=== PATIENT | female | born 1995 | race Caucasian/White ===

== ENCOUNTER 2016-12-25 07:50 | Emergency (ER) | payer BC ==
[~2016-12-25 07:50] MED LIST: CLONAZEPAM0.5 MG PO; SOLODYN80 MG PO; ZOFRAN8 MG PO; [UNRECOGNIZED DRUG - OTHER]
[2016-12-25] MEDS ORDERED: REGLAN5 MG PO (07:58)
[2016-12-25] MEDS ORDERED: OMEPRAZOLE10 M1 PO (07:58)
== END 2016-12-25 09:22 | disposition home or self-care (01) ==
LOC: SED 07:50
DX: K31.84 Gastroparesis (principal); Z91.040 Latex allergy status; Z79.899 Other long term (current) drug therapy
CPT/HCPCS: 96365; 99284; J2550

== ENCOUNTER 2017-01-15 05:42 | Emergency (ER) | payer BC ==
[~2017-01-15] VITALS: Ht 160 cm; Wt 59.0 kg
[~2017-01-15 05:42] MED LIST changes: +OMEPRAZOLE10 M1 PO; +REGLAN5 MG PO
== END 2017-01-15 06:19 | disposition home or self-care (01) ==
LOC: SED 05:42
DX: L25.9 Unspecified contact dermatitis, unspecified cause (principal); F41.9 Anxiety disorder, unspecified; F17.210 Nicotine dependence, cigarettes, uncomplicated; Z90.49 Acquired absence of other specified parts of digestive tract; Z79.899 Other long term (current) drug therapy; Z91.040 Latex allergy status
CPT/HCPCS: 99282